=== PATIENT | male | born 1965 | race Caucasian/White ===

== ENCOUNTER 2024-11-28 06:06 | Day surgery (SDC) | payer BC, SELFPAY ==
[2024-11-18 13:25] VITALS: BMI 27.2
[2024-11-28] VITALS (9 sets, daily range): BP systolic 111–136; BP diastolic 65–83; BMI 27.2
[2024-11-28] MEDS: HEPARIN 5000 UNITS SC (06:56)
[2024-11-28] MEDS: TYLENOL 1000 MG PO (06:56)
[2024-11-28] MEDS: NORMOSOL-R/PLASMALYTE-A 1000 IV (06:57)
--- NOTE | 2024-11-28 09:30 | W.IMMPOSTOP ---
Surgical Immed Post Op Note
-
Primary Surgeon: Neal
Assisting: Laurie MCFADDEN
Pre-op Diagnosis: Recurrent right inguinal hernia, left inguinal hernia
Post-op Diagnosis: Recurrent right inguinal hernia, left inguinal hernia, incarcerated umbilical hernia
Procedure Performed: Robot assisted laparoscopic repair of recurrent right inguinal hernia, left inguinal hernia, incarcerated umbilical hernia (primary repair, 8mm defect)
Anesthesia Type: GETA
Specimen / Cultures: None
Estimated Blood Loss: 5cc
Complications: None immediate
Operative Findings: Bilateral direct defects, left side fatty cord, B/L MID 3D max, 8mm umbilical defect with incarcerated fat repaired with 2-0 PDS stratafix
--- NOTE | 2024-11-28 09:32 | OR.RPT ---
Operative Report
Operative Report
Primary Surgeon: Neal
Assisting: Laurie MCFADDEN
Pre-op Diagnosis: Recurrent right inguinal hernia, left inguinal hernia
Post-op Diagnosis: Recurrent right inguinal hernia, left inguinal hernia, incarcerated umbilical hernia
Procedure Performed: Robot assisted laparoscopic repair of recurrent right inguinal hernia, left inguinal hernia, incarcerated umbilical hernia (primary repair, 8mm defect)
Anesthesia Type: GETA
Specimen / Cultures: None
Estimated Blood Loss: 5cc
Complications: None immediate
Operative Findings: Bilateral direct defects, left side fatty cord, B/L MID 3D max, 8mm umbilical defect with incarcerated fat repaired with 2-0 PDS stratafix
Date of surgery: 11/28/24
Indications:� This 59M developed a symptomatic recurrent right inguinal hernia. He had symptoms on the left as well and on exam a hernia was diagnosed there. Robot assisted laparoscopic repair of recurrent right inguinal hernia and left inguinal
hernia was planned.
Description of procedure:� The patient was taken to the operating room and positioned into supine position. The patient�s abdomen was prepped and draped in standard sterile fashion. A time-out was completed verifying correct patient, procedure,
site, positioning, and implants and special equipment prior to beginning this procedure.
The right groin hernia was unable to be manually reduced. An umbilical hernia was identified and partially reduced. A stab incision was made in the left upper quadrant, a Veress needle was inserted and proper position was confirmed by aspiration and
saline drop test. Following this, pneumoperitoneum was created with insufflation of carbon dioxide to 12 mmHg. Then a 8mm robotic trocar was inserted above and to the left of the umbilicus. A laparoscope was inserted and the area of initial trocar
entry and Veress needle placement were both inspected and no injuries were found. Two 8mm trocars were then placed lateral to the rectus sheath under direct visualization.
Both inguinal regions were inspected and the median umbilical ligament, medial umbilical ligament, and lateral umbilical fold were identified. Attention was turned to the right groin. A large amount of omentum was reduced from the defect by gentle
traction. The peritoneum was incised transversely above the defect and a flap was developed in the caudad direction. Ian�s ligament was identified ultimately dissected to its junction with the iliac vein and the space of Retzius was developed
bluntly.� The dissection was continued inferiorly to the iliopubic tract, with care taken to avoid injury to the femoral branch of the genitofemoral nerve and the lateral femoral cutaneous nerve. The cord structures were parietalized.
The direct space was inspected and a hernia defect was identified and reduced by gentle traction, the pseudosac was everted and secured to Ian's ligament with 2-0 vicryl suture. The femoral space was inspected no defect was identified. The
indirect space was inspected and no hernia was identified. The canal was inspected and no cord lipoma was identified.
Attention was turned to the left groin and the above process as repeated with similar findings. Pseudosac was everted in similar fashion. The cord was noted to be fatty on this side but no discrete cord lipoma was identified.
Extra large left and right MID 3D max mesh was passed through a trocar. The mesh was placed into the preperitoneal space and moved into position to lay flat and completely cover the direct, indirect, and femoral spaces with overlap at the midline.
The mesh was secured into place using 2-0 vicryl suture to Ian�s ligament medially and laterally. Care was taken to avoid the inferolateral triangles containing the iliac vessels and genital nerves. The peritoneal flap was closed over the mesh
and secured with 2-0 monocryl stratafix suture in similar positions of safety. Flap rents on both sides were closed with 2-0 vicryl suture. A 14g angiocath was used to decompress the preperitoneal space revealing good seal and all mesh in good
position without folding or curling.
Attention was turned to the umbilicus. The peritoneum was incised about 2cm superior to the defect and dissection was carried up to the fascia with horacio and electrocautery. Fatty contents were reduced by gentle traction. The defect measured 8mm,
it was closed with 2-0 PDS stratafix suture and the same suture was used to close the peritoneum.
After ensuring adequate hemostasis, the trocars were removed and the pneumoperitoneum allowed to escape. The trocar incisions were closed at the skin level using 4-0 monocryl and topical skin adhesive. All counts were correct and the patient
tolerated the procedure well and was taken to the postanesthesia care unit in stable condition.
The assistance of Laurie MCFADDEN was required due to the complexity of the procedure. During the procedure she assisted with retraction, resection, and closure of the wound.
[2024-11-28] MEDS: SUBLIMAZE 25 MCG IV (10:22)
== END 2024-11-28 12:25 | disposition home or self-care (01) ==
LOC: SDS 06:06
PROVIDERS: ATTENDING PHYSICIAN Surgery; FAMILY PHYSICIAN Physician Assistant Medical
DX: K40.91 Unilateral inguinal hernia, without obstruction or gangrene, recurrent (principal); K40.90 Unilateral inguinal hernia, without obstruction or gangrene, not specified as recurrent; K42.0 Umbilical hernia with obstruction, without gangrene
CPT/HCPCS: 49651; 49650; 49593; 36415; 93005; C1781

== ENCOUNTER → 2025-01-23 11:39 | Outpatient (REF) | payer BC, SELFPAY | LOC: RAD 11:39 | PROVIDERS: ATTENDING PHYSICIAN Internal Medicine | DX: R10.30 Lower abdominal pain, unspecified (principal) | CPT/HCPCS: 74177; Q9967 ==

== ENCOUNTER 2025-04-05 06:35 | Day surgery (SDC) | payer BC, SELFPAY | END 2025-04-05 14:06 | disposition home or self-care (01) | LOC: GI 06:35 | PROVIDERS: ATTENDING PHYSICIAN Internal Medicine | DX: Z12.11 Encounter for screening for malignant neoplasm of colon (principal); K64.8 Other hemorrhoids; K57.30 Diverticulosis of large intestine without perforation or abscess without bleeding; K64.4 Residual hemorrhoidal skin tags; D12.2 Benign neoplasm of ascending colon; K63.5 Polyp of colon; Z87.19 Personal history of other diseases of the digestive system | CPT/HCPCS: 45385; 45380; 88305 ==